=== PATIENT | female | born 1940 | race Caucasian/White ===

== ENCOUNTER 2020-08-08 11:23 | Emergency (ER) | payer MEDICARE, MEDICAID, SELFPAY ==
[2020-08-08] VITALS (53 sets, daily range): BP systolic 103–140; BP diastolic 42–72; PULSE 65–88; RESP 9–25; TEMP 36.7; O2SAT 96–100
--- NOTE | 2020-08-08 11:30 | RT.EKG_ITS ---
APPROVED REPORT Exam: Resting ECG Patient Location: E HR:69 bpm ECG Measurements Heart Rate 69 AXIS AR 186 P 29 QRSd 83 QRS -5 QT 400 T 32 QTc 430 Conclusion Sinus rhythm...normal P axis, V-rate 60- 99 Atrial premature complex...SV complex w/ short R-R interval Left ventricular hypertrophy...multiple voltage criteria QRS 83, non-diagnostic EKG I have reviewed and interpreted ECG and agree with software generated interpretation.
--- NOTE | 2020-08-08 11:54 | ED.GENADUL_ITS ---
Discharge Plan Disposition Patient Disposition: HOME Condition: Stable Discharge Details Clinical Impression: Acute hyperkalemia Primary Care Provider: Unknown,Unknown ED Provider: Venkatesh Hester Home Meds and New Rx's Prescriptions: Continued fentanyl 25 mcg/hr patch 72 hour 25 mcg transdermal .Q72H RF: 0 acetaminophen-codeine 120-12 mg/5 mL solution 15 ml PO Q4H PRN PRNRF: 0 prochlorperazine maleate 10 mg tablet 10 mg PO Q6H PRN PRNRF: 0 docusate sodium 100 mg Capsule 100 mg PO DAILY RF: 0 Calcium 600 + D(3) 600 mg calcium- 200 unit Capsule 1 cap PO DAILY RF: 0 ondansetron 8 mg tablet,disintegrating 8 mg PO Q8H PRN PRNRF: 0 ropinirole 0.25 mg tablet 0.25 mg PO HS RF: 0 Eliquis 5 mg tablet 5 mg PO BID RF: 0 Discharge Instructions Instructions: Hyperkalemia (ED) Additional Instructions: Unfortunately at this time admission to our facility is not an option as we are at capacity. We discussed transfer options and transfer was declined. Instead we set up an outpatient blood draw at your facility tomorrow for repeat potassium. I personally spoke with Rohan Mast MD who is covering your primary care clinic. She will personally speak with Shea Perez tomorrow to make her aware of your ER visit here today and to be sure that you are followed up as an outpatient appropriately. I do recommend you reach out to their office tomorrow by the end of the day if you do not hear from them. Otherwise please watch for new or worsening symptoms and return to the ER for any concerns. Discharge Data Discharge Date/Time-TO BE ENTERED AT DEPARTURE: 08/08/20 17:50 Medical Decision Making <Diandra Aviles - Last Filed: 08/09/20 08:53> 79-year-old female presents to the ED from the cancer center for hyperkalemia. Patient had some labs drawn yesterday and had a potassium level of 6.4. She denies any chest pain, palpitations, shortness of breath, nausea vomiting diarrhea. She does have a history of breast cancer with bone metastases. Her last chemo treatment was approximately 1 month ago. At this time patient has no symptoms of hyperkalemia no nausea vomiting diarrhea no chest pain or palpitations. At this time RNs are having difficulty accessing her Port-A-Cath, chest x-ray ordered to evaluate placement of Port-A-Cath. Patient states it was last accessed 2 weeks ago. At this time we will repeat the potassium level among other labs, EKG is pending at this time. 1517: Repeat potassium level after low, dose went up to 5.9, discussed case with hospitalist at this time. Due to bed availability he is requesting that we give additional treatment to lower her potassium and recheck her potassium and possibly have her come back tomorrow for a lab draw. At this time he does not accept patient for admission. 1533: Spoke with patient's daughter Elyse regarding plan of care for repeat testing and possible admission versus follow up in am. Care is to be handed off to oncoming provider ROBERTO Renee pending repeat potassium level and disposition. At the time of this dictation patient was hemodynamically stable and alert and oriented. <ROBERTO Hill - Last Filed: 08/08/20 17:41> I assumed care of this 79-year-old female from my colleague DEEPAK Aviles. Please see her initial HPI and examination. Patient was sent here from the local cancer center for hyperkalemia. Patient is asymptomatic. Patient was initially given oral medications, no significant change of her potassium. Then given IV fluids, insulin, albuterol, and now awaiting repeat potassium level and final disposition. Unfortunately our hospital is at capacity and admission here is not an option. Repeat potassium to be drawn around 430 pm Upon my evaluation of the patient in room to a she appears well, nontoxic, resting comfortably. She reports that she is currently asymptomatic. Head normocephalic. Patient speaks in full sentences, no respiratory distress. I had a discussion with the patient regarding her potassium and her disposition options. Patient understands that she cannot be admitted here because of our capacity and we discussed transfer. She reports that she would prefer to be dis charged home if at all possible and have her blood drawn as an outpatient tomorrow. I was able to speak with Rohan Mast MD covering for her primary care provider Shea Perez. She is aware of the patient's visit today and her wishes. She will set the patient up for an outpatient blood draw tomorrow at her facility and will personally speak with Shea Perez regarding her presentation here and need for outpatient follow-up. Repeat potassium was 5.0. Patient remains asymptomatic. At 1655 I did speak with the patient family, [id number] Elyse and she understands that the patient does request to be discharged. She feels as though the patient is asymptomatic and this is perfectly reasonable. She is comfortable picking her up in her current care will be sure that she has her blood drawn tomorrow. Upon discharge patient is asymptomatic and has no additional questions or concerns. She was encouraged to return to the ER for new or worsening symptoms otherwise she will have her blood drawn tomorrow and follow-up with her primary care provider. Lab Data Lab results reviewed: Yes I reviewed the patient's lab results. Labs: Laboratory Tests Range/Units 08/08/20 08/08/20 08/08/20 12:10 12:10 12:30 WBC (4.4-10.8) 10^3/uL 10.29 RBC (3.93-5.22) 10^6/uL 3.51 L Hgb (11.2-15.7) g/dL 9.3 L Hct (36.0-46.0) % 31.4 L MCV (80-95) fL 89.5 MCH (27.0-33.0) pg 26.5 L MCHC (32.0-36.0) % 29.6 L RDW (11.7-14.6) % 19.8 H Plt Count (130-400) 10^3/uL 284 MPV (8.0-11.0) fL 9.5 Immature Gran % 0.4 Neutrophils % 85.4 Lymphocytes % 5.9 Monocytes % 7.1 Eosinophils % 1.0 Basophils % 0.2 Nucleated RBC % % 0 Absolute Neutrophils (1.2-6.7) 10^3/uL 8.79 H Absolute Lymphocytes (1.2-3.4) 10^3/uL 0.61 L Absolute Monocytes (0.1-0.8) 10^3/uL 0.73 Absolute Eosinophils (0.0-0.7) 10^3/uL 0.10 Absolute Basophils (0.0-0.2) 10^3/uL 0.02 Sodium (136-145) mmol/L 134 L Potassium (3.5-5.1) mmol/L 5.8 H Chloride (98-107) mmol/L 103 Carbon Dioxide (21.0-32.0) mmol/L 24.5 Anion Gap (3-11) mmol/L 6.5 BUN (7-18) mg/dL 33 H Creatinine (0.55-1.02) mg/dL 1.30 H Estimated GFR/1.73 m2 (mL/min/1.73m2) 39.61 Glucose (74-106) mg/dL 202 H Calcium (8.5-10.1) mg/dL 8.6 Magnesium (1.8-2.4) mg/dL 2.0 Total Bilirubin (0.2-1.0) mg/dL 0.3 AST (15-37) U/L 18 ALT (14-59) U/L 23 Alkaline Phosphatase (46-116) U/L 141 H Troponin I (<0.06) ng/mL < 0.05 Total Protein (6.4-8.2) g/dL 6.9 Albumin (3.4-5.0) g/dL 3.0 L Urine Color (Yellow) Yellow Urine Clarity (Clear) Sl cloudy Urine pH (5-8) 5.5 Ur Specific [place] (1.005-1.025) >= 1.030 H Urine Protein (Negative) mg/dL 100 H Urine Ketones (Negative) mg/dL Negative Urine Blood (Negative) Negative Urine Nitrite (Negative) Negative Urine Bilirubin (Negative) Small H Urine Urobilinogen (Up TO 0.2) EU/dL 0.2 Ur Leukocyte Esterase (Negative) Trace H Urine RBC (0-2) HPF Urine WBC (0-5) HPF >50 H Ur Epithelial Cells (Negative) HPF Many Urine Crystals (Negative) HPF Urine Bacteria (Negative) HPF Urine Casts (Negative) LPF Urine Mucus (Negative) Ur Culture Indicated? No/sq. contamination Urine Glucose (Negative) mg/dL Negative Range/Units 08/08/20 08/08/20 08/08/20 14:28 14:28 16:40 WBC (4.4-10.8) 10^3/uL RBC (3.93-5.22) 10^6/uL Hgb (11.2-15.7) g/dL Hct (36.0-46.0) % MCV (80-95) fL MCH (27.0-33.0) pg MCHC (32.0-36.0) % RDW (11.7-14.6) % Plt Count (130-400) 10^3/uL MPV (8.0-11.0) fL Immature Gran % Neutrophils % Lymphocytes % Monocytes % Eosinophils % Basophils % Nucleated RBC % % Absolute Neutrophils (1.2-6.7) 10^3/uL Absolute Lymphocytes (1.2-3.4) 10^3/uL Absolute Monocytes (0.1-0.8) 10^3/uL Absolute Eosinophils (0.0-0.7) 10^3/uL Absolute Basophils (0.0-0.2) 10^3/uL Sodium (136-145) mmol/L 133 L Potassium (3.5-5.1) mmol/L 5.9 H 5.0 Chloride (98-107) mmol/L 103 Carbon Dioxide (21.0-32.0) mmol/L 24.0 Anion Gap (3-11) mmol/L 6.0 BUN (7-18) mg/dL 34 H Creatinine (0.55-1.02) mg/dL 1.16 H Estimated GFR/1.73 m2 (mL/min/1.73m2) 45.18 Glucose (74-106) mg/dL 201 H Calcium (8.5-10.1) mg/dL 8.6 Magnesium (1.8-2.4) mg/dL Total Bilirubin (0.2-1.0) mg/dL AST (15-37) U/L ALT (14-59) U/L Alkaline Phosphatase (46-116) U/L Troponin I (<0.06) ng/mL < 0.05 Total Protein (6.4-8.2) g/dL Albumin (3.4-5.0) g/dL Urine Color (Yellow) Urine Clarity (Clear) Urine pH (5-8) Ur Specific [place] (1.005-1.025) Urine Protein (Negative) mg/dL Urine Ketones (Negative) mg/dL Urine Blood (Negative) Urine Nitrite (Negative) Urine Bilirubin (Negative) Urine Urobilinogen (Up TO 0.2) EU/dL Ur Leukocyte Esterase (Negative) Urine RBC (0-2) HPF Urine WBC (0-5) HPF Ur Epithelial Cells (Negative) HPF Urine Crystals (Negative) HPF Urine Bacteria (Negative) HPF Urine Casts (Negative) LPF Urine Mucus (Negative) Ur Culture Indicated? Urine Glucose (Negative) mg/dL HPI <Diandra Aviles - Last Filed: 08/09/20 08:53> General Mode of arrival: wheelchair . Date/Time Provider Initiated Documentation: 08/08/20 11:35 . Limitations to Documentation: no limitations . Information obtained by: old records reviewed . HPI Narrative: 79-year-old female presents to the ED from the cancer center for hyperkalemia. Patient had some labs drawn yesterday and had a potassium level of 6.4. She denies any chest pain, palpitations, shortness of breath, nausea vomiting diarrhea. She does have a history of breast cancer with bone metastases. Her last chemo treatment was approximately 1 month ago. Related Data Home Medications Medication Instructions Recorded Confirmed Calcium 600 + D(3) 1 cap PO DAILY 08/08/20 08/08/20 Eliquis 5 mg PO BID 08/08/20 08/08/20 acetaminophen-codeine 15 ml PO Q4H PRN PRN 08/08/20 08/08/20 docusate sodium 100 mg PO DAILY 08/08/20 08/08/20 fentanyl 25 mcg TRANSDERMAL .Q72H 08/08/20 08/08/20 ondansetron 8 mg PO Q8H PRN PRN 08/08/20 08/08/20 prochlorperazine maleate 10 mg PO Q6H PRN PRN 08/08/20 08/08/20 ropinirole 0.25 mg PO HS 08/08/20 08/08/20 Allergies Allergy/AdvReac Type Severity Reaction Status Date / Time ketorolac [From Toradol] Allergy Severe Anaphylaxsi Unverified 08/08/20 12:04 s NSAIDS (Non-Steroidal Allergy Severe Anaphylaxsi Unverified 08/08/20 12:04 Anti-Inflamma s Penicillins Allergy Intermediate Skin Rash Unverified 08/08/20 12:04 metformin AdvReac Diarrhea Unverified 08/08/20 12:04 General Stated Complaint: GenMedical RANDA: 2 Review of Systems <Diandraarden Aviles - Last Filed: 08/09/20 08:53> Narrative: Constitutional: Negative for weight loss, alert and oriented, well groomed, normal body habitus, appears comfortable. HEENT: Denies trauma, headaches, blurry vision, nasal discharge, sore throat, trouble swallowing. Chest: Denies chest pain, palpitations, irregular rhythm, hypertension. Respiratory: Denies Shortness of breath, cough, hemoptysis. GI: Denies abdominal pain, nausea, vomiting, diarrhea, constipation. : Denies dysuria, hematuria, flank pain, rectal bleeding. Neuro: Denies dizziness, blurry vision, weakness, syncope, headache or facial numbness. Hematologic: Denies easy bruising, intolerance to heat or cold, hair loss. PFSH <Diandra Aviles - Last Filed: 08/09/20 08:53> Social History Smoking/Tobacco Use Status: Never Smoking risk assessment performed?: Yes Alcohol Intake: never Substance use type: does not use Exam <Diandra Aviles - Last Filed: 08/09/20 08:53> Narrative Exam Narrative: Constitutional: Alert and oriented x3. Appears stated age. Normal body habitus. Head: Normocephalic, no trauma. Eyes: Pupils PERRLA, Red reflex noted, EOM's intact. Eyelids symmetrical without lesions, discharge, or swelling. ENT: Bilateral TM's WNL, External ear normal to inspection, no mastoid TTP, swelling, or erythema, Nasal turbinates WNL, no nasal discharge. Normal dentition, Posterior pharynx WNL, no exudate. Chest: RRR, Normal S1, S2, distal pulses intact. Does have a Port-A-Cath noted to the right anterior chest wall, it is not able to be accessed at this time. Resp: Lungs clear to auscultation bilaterally, no wheezes, rales, or rhonchi. Musculoskeletal: Normal gait, 5/5 strength to all four extremities. Skin: No suspicious rashes or lesions. Capillary refill less than 2 sec. Neurologic: Cranial nerves II-XII intact. Alert and oriented x 3. DTR's intact. Hematologic/Lymphatic: No ecchymosis, no lymphadenopathy. Course <Diandra Aviles - Last Filed: 08/09/20 08:53> Vital Signs Vital signs: Vital Signs Temperature 36.7 C 08/08/20 11:32 Pulse 65 08/08/20 11:32 Respiratory Rate 18 08/08/20 11:32 Blood Pressure 116/44 L 08/08/20 11:32 Pulse Oximetry 97 08/08/20 11:32 Temperature 36.7 C 08/08/20 11:32 Temperature Source Oral 08/08/20 11:32 Pulse 65 08/08/20 11:32 Respiratory Rate 18 08/08/20 11:32 Respiratory Effort Non-Labored 08/08/20 11:32 Blood Pressure 116/44 L 08/08/20 11:32 Blood Pressure Position Supine 08/08/20 11:32 Pulse Oximetry 97 08/08/20 11:32 Oxygen Delivery Method Room Air 08/08/20 11:32 Oxygen Flow Rate 0 08/08/20 11:32 Pain Level 0 08/08/20 11:32 Sign Out <Diandra Aviles - Last Filed: 08/09/20 08:53> Sign Out Data: Sign Out Comment: Repeat Potassium at 1630, possibly admit after 5 pm if a bed opens up versus having patient return in am for Repeat lab draw. Last updated by Diandra Aviles at 08/08/20 15:33
--- NOTE | 2020-08-08 12:00 | DI.RAD_ITS ---
EXAM: XR PORTABLE CHEST AP CLINICAL HISTORY: Eval Port a cath TECHNIQUE: COMPARISON: No exams were available for comparison FINDINGS: There is an indwelling right central venous catheter in position. Tip of the catheter overlies super ior vena cava. The heart is not enlarged. Lungs are clear and well expanded.. No pleural effusion seen on this fro ntal film. IMPRESSION: RADIATION DOSE DELIVERED: Total DLP
[2020-08-08 12:17] LABS: Abs Immature Grans 0.04 10^3/uL (0.0-0.06); Absolute Basophil Count 0.02 10^3/uL (0.0-0.2); Absolute Lymphocyte Count 0.61 10^3/uL (1.2-3.4); Absolute Monocyte Count 0.73 10^3/uL (0.1-0.8); Absolute Neutrophil Count 8.79 10^3/uL (1.2-6.7); Basophils % 0.2; HCT 31.4 % (36.0-46.0); HGB 9.3 g/dL (11.2-15.7); Immature Grans % 0.4; Lymphocytes % 5.9; MCH 26.5 pg (27.0-33.0); MCHC 29.6 % (32.0-36.0); MCV 89.5 fL (80-95); MPV 9.5 fL (8.0-11.0); Monocytes % 7.1; Neutrophils % 85.4; Nucleated RBC 0 %; Platelet Count 284 10^3/uL (130-400); RBC 3.51 10^6/uL (3.93-5.22); RDW 19.8 % (11.7-14.6); RDW-SD 64.9 fL; WBC 10.29 10^3/uL (4.4-10.8)
[2020-08-08 12:32] LABS: ALT 23 U/L (14-59); AST 18 U/L (15-37); Alkaline Phosphatase 141 U/L (46-116); Anion Gap 6.5 mmol/L (3-11); BUN 33 mg/dL (7-18); Bilirubin, Total 0.3 mg/dL (0.2-1.0); CO2 24.5 mmol/L (21.0-32.0); Calcium 8.6 mg/dL (8.5-10.1); Chloride 103 mmol/L (98-107); Estimated GFR 39.61 (mL/min/1.73m2); Glucose 202 mg/dL (74-106); Potassium 5.8 mmol/L (3.5-5.1); Sodium 134 mmol/L (136-145); Total Protein 6.9 g/dL (6.4-8.2)
[2020-08-08 12:33] LABS: Troponin I < 0.05 ng/mL (<0.06)
[2020-08-08 12:38] LABS: Bilirubin Small (Negative); Blood Negative (Negative); Clarity Sl Cloudy (Clear); Glucose Negative (Negative); Ketones Negative (Negative); Leukocyte Esterase Trace (Negative); Nitrite Negative (Negative); Specific Gravity >= 1.030 (1.005-1.025); Urobilinogen 0.2 EU/dL (Up TO 0.2); pH 5.5 (5-8)
[2020-08-08 12:46] LABS: WBC >50 HPF (0-5)
[2020-08-08 12:47] LABS: C & S Indicated? No/Sq. Contamination; Epithelial Cells Many HPF (Negative)
[2020-08-08] MEDS: Sodium Zirconium Cyclosilicate 10 GM PKT PO (13:06)
[2020-08-08 14:41] LABS: BUN 34 mg/dL (7-18); CREATININE 1.16 mg/dL (0.55-1.02); Calcium 8.6 mg/dL (8.5-10.1); Chloride 103 mmol/L (98-107); Estimated GFR 45.18 (mL/min/1.73m2); Glucose 201 mg/dL (74-106); Potassium 5.9 mmol/L (3.5-5.1); Sodium 133 mmol/L (136-145)
[2020-08-08 14:52] LABS: Troponin I < 0.05 ng/mL (<0.06)
[2020-08-08] MEDS: Insulin REGULAR-Human 100 UNITS/ML UNIT 10 UNITS IV (15:15)
[2020-08-08] MEDS: Furosemide 20 MG/2 ML VIAL IVP (15:19)
[2020-08-08] MEDS: Albuterol 2.5 MG/3 ML INH SOLN VIAL 5 MG UPD (15:20)
[2020-08-08] MEDS: DEXTROSE 10%-WATER 500 ML IV (15:40)
== END 2020-08-08 17:50 | disposition home or self-care (01) ==
PROVIDERS: Registered Nurse Emergency; Emergency Provider Physician Assistant
DX: E87.5 Hyperkalemia (principal); C50.919 Malignant neoplasm of unspecified site of unspecified female breast; C79.51 Secondary malignant neoplasm of bone; Z95.828 Presence of other vascular implants and grafts
CPT/HCPCS: 80048; 80053; 93005; 94640; 96361; 96374; 99284; 71045; 81003; 81015; 83735; 84132; 84484; 85025; 93010; J1941; J7613

== ENCOUNTER 2020-10-31 10:03 | Outpatient (RCR) | payer MEDICARE, MEDICAID, SELFPAY ==
[2020-10-31 10:40] LABS: Abs Immature Grans 0.05 10^3/uL (0.0-0.06); Absolute Basophil Count 0.02 10^3/uL (0.0-0.2); Absolute Eosinophil Count 0.07 10^3/uL (0.0-0.7); Absolute Lymphocyte Count 0.47 10^3/uL (1.2-3.4); Absolute Monocyte Count 0.45 10^3/uL (0.1-0.8); Absolute Neutrophil Count 7.53 10^3/uL (1.2-6.7); Basophils % 0.2; Eosinophils % 0.8; HCT 28.1 % (36.0-46.0); HGB 8.7 g/dL (11.2-15.7); Immature Grans % 0.6; Lymphocytes % 5.5; MCH 26.2 pg (27.0-33.0); MCV 84.6 fL (80-95); MPV 9.9 fL (8.0-11.0); Monocytes % 5.2; Neutrophils % 87.7; Nucleated RBC 0 %; Platelet Count 332 10^3/uL (130-400); RBC 3.32 10^6/uL (3.93-5.22); RDW-SD 56.2 fL; WBC 8.59 10^3/uL (4.4-10.8)
[2020-10-31 10:54] LABS: ALT 15 U/L (14-59); AST 26 U/L (15-37); Albumin 2.5 g/dL (3.4-5.0); Alkaline Phosphatase 115 U/L (46-116); Anion Gap 5.2 mmol/L (3-11); BUN 20 mg/dL (7-18); Bilirubin, Total 0.5 mg/dL (0.2-1.0); CO2 26.8 mmol/L (21.0-32.0); CREATININE 1.34 mg/dL (0.55-1.02); Calcium 8.6 mg/dL (8.5-10.1); Chloride 98 mmol/L (98-107); Estimated GFR 38.15 (mL/min/1.73m2); Glucose 161 mg/dL (74-106); Sodium 130 mmol/L (136-145); Total Protein 6.8 g/dL (6.4-8.2)
[2020-10-31 11:24] LABS: Anisocytosis 2+; Diff Comment RBC Morph Reviewed; Polychromasia Present
[2020-10-31 11:25] LABS: Poikilocytes 2+
== END 2020-11-12 23:59 | disposition home or self-care (01) ==
LOC: INF 10:03
PROVIDERS: Visit Provider Internal Medicine
DX: C79.51 Secondary malignant neoplasm of bone (principal); Z45.2 Encounter for adjustment and management of vascular access device; C50.919 Malignant neoplasm of unspecified site of unspecified female breast
CPT/HCPCS: 36591; 80053; 85025